=== PATIENT | male | born 1950 | race Caucasian/White ===

== ENCOUNTER 2019-10-02 17:20 | IRF | payer MEDICARE, BC, SELFPAY ==
[2019-10-02 17:20] VITALS: BP 130/62; PULSE 76; RESP 17; TEMP 36.6; O2SAT 97; BMI 33.5
--- NOTE | 2019-10-02 18:19 | ADMGEN ---
This patient, Colin Rowland, was admitted to [facility] Room 221-01. Patient/family oriented to hospital policies and general routines including ID bracelet, bed and alarms, visiting hours, pain management, procedures, bathroom and other care routines, personal items, smoking policy, room service/diet, and visiting hours. Valuables list has been completed. Information on how to activate the Rapid Response Team has been discussed. Patient/Family are encouraged to report perceived risks to care and to ask questions if they do not understand what they are told or what they should do.
[2019-10-02 21:56] VITALS: BP 117/54; PULSE 77; RESP 18; TEMP 36.3; O2SAT 92
[2019-10-03 04:50] LABS: Basophils Absolute Auto 0.1 K/mm3 (0.0-0.1); Eosinophils Absolute Auto 0.9 K/mm3 (0-0.3); Eosinophils Percent Auto 10.3 % (0-4.4); Hematocrit 37.1 % (42.0-52.0); Hemoglobin 11.9 g/dL (14.0-18.0); Immature Granulocyte Absolute 0.07 K/mm3 (0.00-0.031); Immature Granulocyte Percent A 0.8 % (0-0.5); Lymphocytes Absolute Auto 2.41 K/mm3 (0.9-3.2); Mean Corpuscular HGB Conc 32.1 g/dl (32-36); Mean Corpuscular Hemoglobin 31.2 pg (26-34); Mean Corpuscular Volume 97.4 fl (80-100); Mean Platelet Volume 11.8 fl (7.4-10.4); Monocytes Percent Auto 11.7 % (2.6-8.5); Neutrophils Absolute Auto 4.4 K/mm3 (1.3-6.7); Neutrophils Percent Auto 49.2 % (45.5-73.1); Platelet Count Result 250 k/mm3 (150-375); Red Blood Count 3.81 M/mm3 (4.6-6.20); Red Cell Distribution Width 13.7 % (11.5-14.5); White Blood Count 8.9 K/mm3 (4.5-10.0)
[2019-10-03 05:06] LABS: Blood Urea Nitrogen 21 mg/dL (9-20); Calcium 9.5 mg/dL (8.4-10.2); Carbon Dioxide 29 mmol/L (22-30); Chloride 101 mmol/L (98-107); Estimated CRCL calculation 90 ml/min; Estimated Glomerular Filt Rate > 60; Glucose 153 mg/dL (75-110); Potassium 4.1 mmol/L (3.4-5.0); Sodium 138 mmol/L (137-145)
[2019-10-03 06:00] VITALS: BP 156/56; PULSE 70; RESP 18; TEMP 36.6; O2SAT 100
[2019-10-03 08:34] LABS: Hemoglobin A1C 6.1 % (<5.7)
[2019-10-03 10:04] VITALS: PULSE 70
[2019-10-03] MEDS: atenoloL 50 MG TABLET PO (10:04)
[2019-10-03] MEDS: ASPIRIN 81 MG ENTERIC TABLET PO (10:04)
[2019-10-03] MEDS: FENOFIBRATE NANOCRYSTALLIZED 145 MG TABLET PO (10:05)
[2019-10-03] MEDS: metFORMIN HCL 500 MG TABLET 1000 MG PO ×2 (10:05→17:38)
[2019-10-03] MEDS: TELMISARTAN 40 MG TABLET 80 MG PO (10:06)
[2019-10-03] MEDS: TAMSULOSIN HCL 0.4 MG CAPSULE PO (10:06)
[2019-10-03] MEDS: OMEGA 3 POLYUNSAT FATTY ACIDS 1 GM CAP 2 GM PO ×2 (10:06→17:39)
[2019-10-03] MEDS: INSULIN ASPART (*BKC) 100 UNITS/ML SUB-Q ×3 (10:11→17:45)
[2019-10-03] MEDS: INSULIN DETEMIR 100 UNITS/ML 70 UNITS SUB-Q (10:20)
[2019-10-03] MEDS: PREGABALIN 75 MG CAPSULE 150 MG PO ×2 (10:22→17:44)
--- NOTE | 2019-10-03 11:00 | WPDREHABHP ---
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 The patient is a 68-year-old right-handed gentleman with a prior medical history of diabetes peripheral vascular disease and peripheral neuropathy who developed an ischemic ulceration and infection to his left foot. He had a left popliteal distal bypass graft which occluded several years ago. He saw his field service poultry technician, Dr. Herrera on September 15, 2019 were his right foot was debrided. The wrong antibiotics were ordered so he was not on any antibiotic therapy. His left lower extremity started swelling and was extremely painful so he presented to Dr. Melo office. he was directly admitted to [facility] the same day. He underwent a diagnostic aortofemoral anti angiogram to see if any vascular reconstruction was possible. The vascular surgeon determine the patient had non reconstruction will vascular disease bilaterally particularly worse on the left side. The limb was considered on salvageable and the patient underwent till left [id number] amputation on September 27, 2019 postoperatively the patient experienced acute pain, acute blood-loss anemia, and hypotension. He has acute pain is now controlled with oral pain medications. Acute blood-loss anemia stable with the current hemoglobin of 11.9. Hypertension is being managed with multiple medication and is improving. Physical examination reveals an inability to perform ADLs, functional transfers and ambulation independently predated medical management by a physician is required for hypertension, diabetes mellitus, potential for delayed wound healing in the setting of severe peripheral vascular disease, potential for wound dehiscence, and monitor for infection in a patient with a new [id number] amputation and a history of infectious process of the same extremity. Patient completed antibiotic therapy and September 28, 2019. According to our screen patient is supposed to be on Lovenox for DVT prophylaxis but I see that he is not. Therapy was initiated at the acute care facility and the patient transferred to us from [facility] on October 02, 2019 FALLS OR SURGERIES: The patient has had major surgeries in the 100 days prior to admission. They had no falls in the past year. They had no falls with injury in the past year. PAST MEDICAL HISTORY: allergic rhinitis / have fever, right-sided cataract, vertigo from letter cough, left foot cellulitis, eczema on tapering steroids, right toe nonhealing wound, hyperlipidemia, hypertension, MRI, peripheral vascular disease, sleep apnea, gastroesophageal reflux disease, peripheral neuropathy along with diabetes mellitus, obesity PAST SURGICAL HISTORY: peripheral by phos in ( left popliteal pedis artery bypass graft reverse saphenous veins -April 2012), PICC line right arm removed June 27, 2012, I and D left popliteal abscess ( August 04, 2012), right 4th and 5th toe amputation ) November 2015), cholecystectomy in July of 2013, wound VAC left foot between May 18, [id number] SOCIAL HISTORY: patient lives with his in a 1 level home with the level injury. He was completely independent prior with no assistive device. No alcohol use since 04/08, no illicit use of drugs, cigar smoking FAMILY HISTORY: we will find out from his PRIOR LEVEL OF FUNCTION: Eating was INDEPENDENT Oral Care was INDEPENDENT Toileting Hygiene was INDEPENDENT Shower/Bathing was INDEPENDENT Upper Body Dressing was INDEPENDENT Lower Body Dressing was INDEPENDENT Donning/[place] Footwear was INDEPENDENT Rolling Lef
[2019-10-03 12:43] LABS: Glucose Point of Care 131 (65-105)
[2019-10-03 14:00] VITALS: BP 125/58; PULSE 75; RESP 18; TEMP 36.2; O2SAT 100
[2019-10-03 14:15] VITALS: BMI 33.5
--- NOTE | 2019-10-03 15:16 | PCCCNOTE ---
On 10/03/19, the student, [Vincent Murry ], provided care and completed [facility] documentation on this patient. I have reviewed the student's documentation and agree with the findings.
[2019-10-03] MEDS: polyethylene glycoL 3350 17 GM POWD.PACK PO (17:44)
[2019-10-03 17:50] LABS: Glucose Point of Care 90 (65-105)
[2019-10-03 21:37] LABS: Glucose Point of Care 127 (65-105)
[2019-10-03 21:47] VITALS: BP 95/56; PULSE 78; RESP 20; TEMP 36.4; O2SAT 98
[2019-10-04 06:00] VITALS: BP 102/56; PULSE 63; RESP 18; TEMP 36.6; O2SAT 98
[2019-10-04 07:27] LABS: Glucose Point of Care 118 (65-105)
[2019-10-04] MEDS: INSULIN ASPART (*BKC) 100 UNITS/ML SUB-Q ×3 (08:27→17:32)
[2019-10-04] MEDS: INSULIN DETEMIR 100 UNITS/ML 70 UNITS SUB-Q (08:28)
[2019-10-04 08:30] VITALS: PULSE 63
[2019-10-04] MEDS: ASPIRIN 81 MG ENTERIC TABLET PO (08:30)
[2019-10-04] MEDS: atenoloL 50 MG TABLET PO (08:30)
[2019-10-04] MEDS: ENOXAPARIN 40 MG/0.4 ML SYRINGE SUB-Q (08:31)
[2019-10-04] MEDS: TAMSULOSIN HCL 0.4 MG CAPSULE PO (08:31)
[2019-10-04] MEDS: metFORMIN HCL 500 MG TABLET 1000 MG PO ×2 (08:31→17:33)
[2019-10-04] MEDS: FENOFIBRATE NANOCRYSTALLIZED 145 MG TABLET PO (08:31)
[2019-10-04] MEDS: OMEGA 3 POLYUNSAT FATTY ACIDS 1 GM CAP 2 GM PO ×2 (08:31→17:33)
[2019-10-04] MEDS: TELMISARTAN 40 MG TABLET 80 MG PO (08:32)
[2019-10-04] MEDS: PREGABALIN 75 MG CAPSULE 150 MG PO ×2 (08:34→17:35)
[2019-10-04 12:07] LABS: Glucose Point of Care 103 (65-105)
--- NOTE | 2019-10-04 13:30 | WPDNEURORHBP ---
Subjective Date/time seen: 10/04/19 13:30 Interval history: this 68-year-old patient is here after having had a left BKA and doing fairly well He denies any fever chills sore throat headache nausea vomiting shortness of breast chest pain home or any further weakness Review of Systems Review of Systems: All systems reviewed & are unremarkable except as noted in HPI and below Functional Status Ambulation Ability Ability to Ambulate 10 Feet: Minimum Assistance X 1 Ability to Ambulate 50 Feet With 2 Turns: Minimum Assistance X 1 Ambulation Assistive Devices: Walker, Standard Exam Const: General: comfortable and no acute distress HENMT: General nose exam: Normal nares present Mouth: Yes moist mucous membranes Eyes: General: appearance normal, both eyes and all related structures Neck: Neck: supple and no JVD Resp: Effort & Inspection: normal respiratory effort Auscultation: clear to auscultation bilaterally Cardio: Rate: regular rate Rhythm: regular rhythm GI: GI Palp: Yes Soft to palpation Auscultation: normal bowel sounds Skin: General skin exam: normal color and no rashes or lesions noted Neuro: Other: patient is awake and alert will oriented in time place person and speech language functions cranial examination is unremarkable. He does have evidence of peripheral neuropathy and peripheral vascular disease which has already been well documented in the records the left BKA he seems to be doing fairly well Extrem: Other: left BKA Psych: Mental Status: mental status grossly normal Objective Data Vital Signs Vital Signs: Vital Signs - 24 hr 10/03/19 14:00 10/03/19 21:47 10/04/19 06:00 Temperature 36.2 C L 36.4 C 36.6 C Pulse Rate 75 78 63 Respiratory Rate 18 20 18 Blood Pressure 125/58 L 95/56 L 102/56 L Pulse Oximetry 100 98 98 10/04/19 08:30 Temperature Pulse Rate 63 Respiratory Rate Blood Pressure Pulse Oximetry Intake/Output Intake/Output: Intake & Output 10/01/19 10/02/19 10/03/19 10/04/19 23:59 23:59 23:59 23:59 Intake Total 720 240 Balance 720 240 Meds/Results Medications: Active Medications Generic Name Dose Route Start Last Admin Trade Name Freq PRN Reason Stop Dose Admin Hydrocodone Bitart/Acetaminophen 2 tab 10/03/19 17:55 10/04/19 08:29 [place] 5-325 Mg PO 2 tab Q4H PRN Administration Pain (Scale Score 7-10) Aspirin 81 mg 10/03/19 09:00 10/04/19 08:30 Aspirin Ec PO 81 mg DAILY MARLI Administration Atenolol 50 mg 10/03/19 09:00 10/04/19 08:30 Tenormin PO 50 mg DAILY MARLI Administration Clobetasol Propionate 1 applic 10/02/19 21:00 10/04/19 08:31 Temovate 0.05% Cream TOPICAL 1 applic Q12HR MARLI Administration Dextrose 12.5 gm 10/02/19 19:10 Dextrose 50% Syringe IV PUSH PRN PRN Hypoglycemia Protocol Diphenhydramine HCl 50 mg 10/02/19 21:00 10/03/19 20:55 Benadryl Cap PO 50 mg HS MARLI Administration Enoxaparin Sodium 40 mg 10/04/19 09:00 10/04/19 08:31 Lovenox SUB-Q 40 mg DAILY MARLI Administration Fenofibrate 145 mg 10/03/19 09:00 10/04/19 08:31 Tricor PO 145 mg QAM MARLI Administration Fish Oil 2 gm 10/03/19 09:00 10/04/19 08:31 Lovaza PO 2 gm BID MARLI Administration Glucagon 1 mg 10/02/19 19:10 Glucagon For Inj IM PRN PRN Hypoglycemia Protocol Glucose 15 gm 10/02/19 19:10 Glutose 15 PO PRN PRN Hypoglycemia Protocol Dextrose 1,000 mls @ 100 mls/hr 10/02/19 19:10 Dextrose 5% 1,000 Ml IVPB PRN PRN Hypoglycemia Protocol Insulin Aspart 4 - 6 units 10/02/19 19:10 10/04/19 08:27 Novolog SUB-Q 6 units TIDWM MARLI Administration Insulin Aspart 4 - 8 units 10/03/19 08:00 10/04/19 08:27 Novolog SUB-Q Not Given TIDWM [facility] Protocol Insulin Detemir 70 units 10/03/19 09:00 10/04/19 08:28 Levemir SUB-Q 70 units DAILY MARLI Administration Metformin HCl 1,
[2019-10-04 14:00] VITALS: BP 108/62; PULSE 76; RESP 20; TEMP 36.2; O2SAT 96
--- NOTE | 2019-10-04 16:27 | RPD ---
INDIVIDUALIZED PLAN OF CARE FOR Colin Rowland Brief Synthesis of Pre-Admission Screen, Post-Admission Evaluation and Therapy Evaluations: The patient presents to rehab with peripheral artery disease with left foot ischemic ulcer. Comorbidities include status post left below the knee amputation, diabetes mellitus, hypertension, hyperlipidemia, infection, acute pain, peripheral vascular disease, benign prostatic hypertrophy, peripheral arterial disease. The patient requires physician services for medical oversight, management of post-op complications in the setting of present comorbidities, management of diabetes mellitus diagnosis, hypertension, and pain management. The patient requires nursing services for anticoagulation therapy, diabetes training, DVT prophylactics, infection protection, medication management and education, pressure relief, and wound care. Deficits include:ADLs, Balance, Endurance, Mobility, Pain Management, ROM, Safety, Strength,Transfers Ordnance Mechanic/Case Management for: Discharge Planning and Patient/Family Counseling Physical Therapy: 5 days per week for 90 minutes. Treatments may include: Therapeutic Exercise, Gait Training, Neuromuscular Re-education, Transfer Training, Community Reintegration, Bed Mobility, Patient/Family Education, Wheelchair Mobility Group Therapy/Concurrent Therapy Rationales: -Improve attention span during functional activities in a distracted environment. -Enhance problem solving and/or adequate judgment skills during functional activities in a distracted environment. -Promote increased safety awareness in a distracted environment to reduce fall risk with functional tasks, transfers, and ambulation to allow a more safe, self-sufficient return to the home environment. -Improve dynamic balance skills to promote safety and independence with functional activities in a distracted environment for maximum gain. Occupational Therapy: 5 days per week for 90 minutes. Treatments may include: Therapeutic Exercise, Therapeutic Activity, Cognitive Training, Self-Care Transfer Training, Community Reintegration, Home Management, Patient/Family Education, Wheelchair Mobility Training, Energy Conservation Training Group Therapy/Concurrent Therapy Rationales: -Allow therapist to observe and teach generalization and carry-over of skills learned in individual therapy. -Enhance problem solving and sequencing skills during therapeutic activities in a distracted environment. -Promote increased safety awareness in a realistic setting to reduce fall risk with functional tasks due to visual and verbal distractions. -Increase functional level with ADLs, ADL transfers and use of adaptive equipment through therapeutic activities with others while promoting safety to allow a more safe, self-sufficient return home. Medical Prognosis: Good Anticipated Length of Stay: 12 days Rehab Goals: Eating Goal: 06-Independent Oral Hygiene Goal: 06-Independent Toileting Hygiene Goal: 06-Independent Shower/Bathe Self Goal: 06-Independent Upper Body Dressing Goal: 06-Independent Lower Body Dressing Goal: 06-Independent Putting On/Taking Off Footwear Goal: 06-Independent Rolling Left and Right Goal: 06-Independent Sit to Lying Goal: 06-Independent Lying to Sitting on Side of Bed Goal: 06-Independent Sit to Stand Goal: 06-Independent Chair/But-qn-Nhygy Transfer Goal: 06-Independent Toilet Transfer Goal: 06-Independent Car Transfer Goal: 05-Setup or Clean Up Assistance Walk 10' Goal: 05-Setup or Clean Up Assistance Walk 50' with Two Turns Goal: 05-Setup or Clean Up Assistance Walk 150' Goal: 88-Not Attempted Due to Medical Condition/Safety Concerns Walk 10' on Uneven Surface Goal: 05-Setup or Clean Up Assistance 1 Step (Curb) Goal: 03-Partial/Moderate Assistance 4 Steps Goal: 88-Not Attempted Due to Medical Condition/Safety Concerns 12 Steps Goal Score: 88-Not Attempted Due to Medical Condition/Safety Concerns Picking Up Object Goal: 06-Indepen
[2019-10-04 16:59] LABS: Glucose Point of Care 99 (65-105)
[2019-10-04] MEDS: DOCUSATE SODIUM 100 MG CAPSULE PO (20:23)
[2019-10-04 21:18] LABS: Glucose Point of Care 167 (65-105)
[2019-10-05 06:00] VITALS: BP 103/44; PULSE 74; RESP 16; TEMP 36.5; O2SAT 98
[2019-10-05 06:54] LABS: Glucose Point of Care 130 (65-105)
[2019-10-05] MEDS: ENOXAPARIN 40 MG/0.4 ML SYRINGE SUB-Q (09:30)
[2019-10-05] MEDS: OMEGA 3 POLYUNSAT FATTY ACIDS 1 GM CAP 2 GM PO ×2 (09:30→17:36)
[2019-10-05] MEDS: polyethylene glycoL 3350 17 GM POWD.PACK PO (09:31)
[2019-10-05] MEDS: atenoloL 50 MG TABLET PO (09:31)
[2019-10-05] MEDS: FENOFIBRATE NANOCRYSTALLIZED 145 MG TABLET PO (09:31)
[2019-10-05] MEDS: ASPIRIN 81 MG ENTERIC TABLET PO (09:32)
[2019-10-05] MEDS: TAMSULOSIN HCL 0.4 MG CAPSULE PO (09:32)
[2019-10-05] MEDS: metFORMIN HCL 500 MG TABLET 1000 MG PO ×2 (09:32→17:36)
[2019-10-05] MEDS: DOCUSATE SODIUM 100 MG CAPSULE PO ×2 (09:32→20:57)
[2019-10-05] MEDS: TELMISARTAN 40 MG TABLET 80 MG PO (09:33)
[2019-10-05] MEDS: INSULIN DETEMIR 100 UNITS/ML 70 UNITS SUB-Q (09:35)
[2019-10-05] MEDS: PREGABALIN 75 MG CAPSULE 150 MG PO ×2 (09:36→17:38)
[2019-10-05 11:49] LABS: Glucose Point of Care 179 (65-105)
[2019-10-05] MEDS: INSULIN ASPART (*BKC) 100 UNITS/ML SUB-Q ×2 (11:58→17:34)
[2019-10-05 14:00] VITALS: BP 122/55; PULSE 78; RESP 18; TEMP 36.6; O2SAT 100
--- NOTE | 2019-10-05 14:37 | PCDIET ---
Nutrition Follow-Up Complete: Nutrition Diagnosis: Altered nutrition related labs related to diabetes mellitus as evidenced by HgbA1C of 6.1%. Nutrition Goals: Patient to consume 75% or more of meals and Baljinder supplement Goals met. Patient consuming 100% of meals on diabetic diet which is appropriate. Last recorded weight is 103 kg. Recommend obtaining new weight. Bowel Motility: No issues noted. Labs Reviewed: Glu (179) Meds Noted: Colace, Levemir, Lovaza, Glucophage, Novolog, Miralax Additional Notes: Left leg incision with dressing. No pressure sores documented. Will continue to monitor with same goals. Nutrition Monitoring and Evaluation: Follow up in 5 days.
--- NOTE | 2019-10-05 15:54 | PCCCNOTE ---
On 10/05/19, the student, [Vincent Murry ], provided care and completed [facility] documentation on this patient. I have reviewed the student's documentation and agree with the findings.
[2019-10-05 17:00] LABS: Glucose Point of Care 140 (65-105)
[2019-10-05 21:22] LABS: Glucose Point of Care 184 (65-105)
[2019-10-05 21:58] VITALS: BP 114/58; PULSE 85; RESP 20; TEMP 36.4; O2SAT 94
[2019-10-06 06:00] VITALS: BP 112/46; PULSE 71; RESP 18; TEMP 36.2; O2SAT 93
[2019-10-06 07:06] LABS: Glucose Point of Care 130 (65-105)
[2019-10-06] MEDS: INSULIN DETEMIR 100 UNITS/ML 70 UNITS SUB-Q (09:41)
[2019-10-06] MEDS: INSULIN ASPART (*BKC) 100 UNITS/ML SUB-Q ×3 (09:42→18:11)
[2019-10-06] MEDS: ASPIRIN 81 MG ENTERIC TABLET PO (09:42)
[2019-10-06 09:43] VITALS: PULSE 71
[2019-10-06] MEDS: metFORMIN HCL 500 MG TABLET 1000 MG PO ×2 (09:43→18:12)
[2019-10-06] MEDS: DOCUSATE SODIUM 100 MG CAPSULE PO ×2 (09:43→20:04)
[2019-10-06] MEDS: atenoloL 50 MG TABLET PO (09:43)
[2019-10-06] MEDS: FENOFIBRATE NANOCRYSTALLIZED 145 MG TABLET PO (09:43)
[2019-10-06] MEDS: ENOXAPARIN 40 MG/0.4 ML SYRINGE SUB-Q (09:43)
[2019-10-06] MEDS: TELMISARTAN 40 MG TABLET 80 MG PO (09:44)
[2019-10-06] MEDS: TAMSULOSIN HCL 0.4 MG CAPSULE PO (09:44)
[2019-10-06] MEDS: polyethylene glycoL 3350 17 GM POWD.PACK PO (09:44)
[2019-10-06] MEDS: OMEGA 3 POLYUNSAT FATTY ACIDS 1 GM CAP 2 GM PO ×2 (09:44→18:15)
[2019-10-06] MEDS: PREGABALIN 75 MG CAPSULE 150 MG PO ×2 (09:44→18:16)
[2019-10-06 11:58] LABS: Glucose Point of Care 144 (65-105)
[2019-10-06 14:00] VITALS: BP 118/54; PULSE 76; RESP 20; TEMP 36.8; O2SAT 98
[2019-10-06 17:02] LABS: Glucose Point of Care 119 (65-105)
[2019-10-06 21:20] LABS: Glucose Point of Care 217 (65-105)
[2019-10-06 22:00] VITALS: BP 98/51; PULSE 80; RESP 20; TEMP 36.8; O2SAT 92
[2019-10-07 06:00] VITALS: BP 126/54; PULSE 74; RESP 18; TEMP 36.2; O2SAT 94
[2019-10-07 06:56] LABS: Glucose Point of Care 150 (65-105)
[2019-10-07 09:25] VITALS: PULSE 74
[2019-10-07] MEDS: atenoloL 50 MG TABLET PO (09:25)
[2019-10-07] MEDS: ASPIRIN 81 MG ENTERIC TABLET PO (09:25)
[2019-10-07] MEDS: metFORMIN HCL 500 MG TABLET 1000 MG PO ×2 (09:26→18:35)
[2019-10-07] MEDS: ENOXAPARIN 40 MG/0.4 ML SYRINGE SUB-Q (09:26)
[2019-10-07] MEDS: FENOFIBRATE NANOCRYSTALLIZED 145 MG TABLET PO (09:26)
[2019-10-07] MEDS: polyethylene glycoL 3350 17 GM POWD.PACK PO (09:27)
[2019-10-07] MEDS: TAMSULOSIN HCL 0.4 MG CAPSULE PO (09:27)
[2019-10-07] MEDS: OMEGA 3 POLYUNSAT FATTY ACIDS 1 GM CAP 2 GM PO ×2 (09:27→18:36)
[2019-10-07] MEDS: TELMISARTAN 40 MG TABLET 80 MG PO (09:27)
[2019-10-07] MEDS: DOCUSATE SODIUM 100 MG CAPSULE PO ×2 (09:28→20:07)
[2019-10-07] MEDS: INSULIN DETEMIR 100 UNITS/ML 70 UNITS SUB-Q (09:30)
[2019-10-07] MEDS: PREGABALIN 75 MG CAPSULE 150 MG PO ×2 (09:30→18:41)
[2019-10-07] MEDS: INSULIN ASPART (*BKC) 100 UNITS/ML SUB-Q ×2 (09:33→12:01)
--- NOTE | 2019-10-07 11:13 | WPDNEURORHBP ---
Subjective Date/time seen: 10/07/19 11:13 Review of Systems Review of Systems: All systems reviewed & are unremarkable except as noted in HPI and below Functional Status Ambulation Ability Ability to Ambulate 10 Feet: Contact Guard Ability to Ambulate 50 Feet With 2 Turns: Minimum Assistance X 1 Ambulation Assistive Devices: Walker, Standard Transfers Ability Ability to Transfer In/Out of Chair: Contact Guard Exam Const: General: cooperative, healthy appearing, comfortable and no acute distress Nutritional Appearance: well nourished Limitations: no limitations (amputee on left) HENMT: Head: normocephalic Neck: Neck: full ROM and no lymphadenopathy Thyroid: thyroid normal Resp: Effort & Inspection: normal respiratory effort and able to speak in complete sentences Auscultation: clear to auscultation bilaterally Cardio: Rhythm: regular rhythm GI: Auscultation: normal bowel sounds Skin: General skin exam: no rashes or lesions noted Neuro: General: patient oriented x3, moves all extremities, no focal motor deficits and CN's II-XI intact bilaterally Motor exam (neuro): 5/5 motor strength present throughout Sensory Exam: Sensory deficit (Neuro) (distally) Deep tendon reflexes (DTR's): Right triceps reflex intensity grade: 1+, Left triceps reflex intensity grade: 1+, Rt Biceps (C5, C6): 1+, Left biceps reflex intensity grade: 1+, Right brachioradialis reflex intensity grade: 1+, Left brachioradialis reflex intensity grade: 1+, Right patellar reflex intensity grade: 0 and Right ankle reflex intensity grade: 0 Plantar Reflex Responses: downgoing: right Coordination: [id number] test normal Extrem: General: amputation noted Below the knee: left Psych: Appearance: grossly normal Objective Data Vital Signs Vital Signs: Vital Signs - 24 hr 10/06/19 14:00 10/06/19 22:00 10/07/19 06:00 Temperature 36.8 C 36.8 C 36.2 C L Pulse Rate 76 80 74 Respiratory Rate 20 20 18 Blood Pressure 118/54 L 98/51 L 126/54 L Pulse Oximetry 98 92 94 10/07/19 09:25 Temperature Pulse Rate 74 Respiratory Rate Blood Pressure Pulse Oximetry Intake/Output Intake/Output: Intake & Output 10/04/19 10/05/19 10/06/19 10/07/19 23:59 23:59 23:59 23:59 Intake Total 720 840 720 240 Balance 720 840 720 240 Meds/Results Medications: Active Medications Generic Name Dose Route Start Last Admin Trade Name Freq PRN Reason Stop Dose Admin Hydrocodone Bitart/Acetaminophen 2 tab 10/03/19 17:55 10/06/19 18:16 [place] 5-325 Mg PO 2 tab Q4H PRN Administration Pain (Scale Score 7-10) Aspirin 81 mg 10/03/19 09:00 10/07/19 09:25 Aspirin Ec PO 81 mg DAILY MARLI Administration Atenolol 50 mg 10/03/19 09:00 10/07/19 09:25 Tenormin PO 50 mg DAILY MARLI Administration Clobetasol Propionate 1 applic 10/02/19 21:00 10/07/19 09:37 Temovate 0.05% Cream TOPICAL 1 applic Q12HR MARLI Administration Dextrose 12.5 gm 10/02/19 19:10 Dextrose 50% Syringe IV PUSH PRN PRN Hypoglycemia Protocol Diphenhydramine HCl 50 mg 10/02/19 21:00 10/06/19 20:04 Benadryl Cap PO 50 mg HS MARLI Administration Docusate Sodium 100 mg 10/04/19 21:00 10/07/19 09:28 Colace Capsule PO 100 mg Q12HR MARLI Administration Enoxaparin Sodium 40 mg 10/04/19 09:00 10/07/19 09:26 Lovenox SUB-Q 40 mg DAILY MARLI Administration Fenofibrate 145 mg 10/03/19 09:00 10/07/19 09:26 Tricor PO 145 mg QAM MARLI Administration Fish Oil 2 gm 10/03/19 09:00 10/07/19 09:27 Lovaza PO 2 gm BID MARLI Administration Glucagon 1 mg 10/02/19 19:10 Glucagon For Inj IM PRN PRN Hypoglycemia Protocol Glucose 15 gm 10/02/19 19:10 Glutose 15 PO PRN PRN Hypoglycemia Protocol Dextrose 1,000 mls @ 100 mls/hr 10/02/19 19:10 Dextrose 5% 1,000 Ml IVPB PRN PRN Hypoglycemia Protocol Insulin Aspart 4 - 6 units 10/02/19 19:10 02
[2019-10-07 12:15] LABS: Glucose Point of Care 116 (65-105)
[2019-10-07 14:00] VITALS: BP 134/54; PULSE 80; RESP 18; TEMP 36.7; O2SAT 100
[2019-10-07 17:26] LABS: Glucose Point of Care 84 (65-105)
[2019-10-07 21:40] LABS: Glucose Point of Care 150 (65-105)
[2019-10-07 22:00] VITALS: BP 95/57; PULSE 79; RESP 18; TEMP 36.4; O2SAT 97
[2019-10-08 06:00] VITALS: BP 112/48; PULSE 71; RESP 18; TEMP 36.2; O2SAT 98
[2019-10-08 06:34] LABS: Glucose Point of Care 124 (65-105)
[2019-10-08] MEDS: INSULIN ASPART (*BKC) 100 UNITS/ML SUB-Q (09:09)
[2019-10-08] MEDS: ASPIRIN 81 MG ENTERIC TABLET PO (09:10)
[2019-10-08 09:11] VITALS: PULSE 71
[2019-10-08] MEDS: atenoloL 50 MG TABLET PO (09:11)
[2019-10-08] MEDS: ENOXAPARIN 40 MG/0.4 ML SYRINGE SUB-Q (09:14)
[2019-10-08] MEDS: DOCUSATE SODIUM 100 MG CAPSULE PO ×2 (09:14→20:07)
[2019-10-08] MEDS: metFORMIN HCL 500 MG TABLET 1000 MG PO ×2 (09:15→18:23)
[2019-10-08] MEDS: OMEGA 3 POLYUNSAT FATTY ACIDS 1 GM CAP 2 GM PO ×2 (09:15→18:24)
[2019-10-08] MEDS: FENOFIBRATE NANOCRYSTALLIZED 145 MG TABLET PO (09:15)
[2019-10-08] MEDS: TELMISARTAN 40 MG TABLET 80 MG PO (09:16)
[2019-10-08] MEDS: PREGABALIN 75 MG CAPSULE 150 MG PO ×2 (09:16→18:25)
[2019-10-08] MEDS: TAMSULOSIN HCL 0.4 MG CAPSULE PO (09:16)
[2019-10-08] MEDS: polyethylene glycoL 3350 17 GM POWD.PACK PO (09:16)
[2019-10-08] MEDS: INSULIN DETEMIR 100 UNITS/ML 70 UNITS SUB-Q (09:19)
[2019-10-08 12:50] LABS: Glucose Point of Care 89 (65-105)
[2019-10-08 14:00] VITALS: BP 126/64; PULSE 78; RESP 18; TEMP 36.6; O2SAT 96
[2019-10-08 17:58] LABS: Glucose Point of Care 126 (65-105)
--- NOTE | 2019-10-08 20:02 | PC.NURSE ---
pts left stump dressing changed --cleansed with NS, super sponges to protect and hugh wrapped.
[2019-10-08 21:05] LABS: Glucose Point of Care 154 (65-105)
[2019-10-08 21:23] VITALS: BP 119/41; PULSE 81; RESP 16; TEMP 36.6; O2SAT 99
[2019-10-09 06:00] VITALS: BP 118/45; PULSE 69; RESP 20; TEMP 36.4; O2SAT 97
[2019-10-09 07:24] LABS: Glucose Point of Care 132 (65-105)
[2019-10-09 10:57] VITALS: PULSE 84
[2019-10-09] MEDS: atenoloL 50 MG TABLET PO (10:57)
[2019-10-09] MEDS: DOCUSATE SODIUM 100 MG CAPSULE PO ×2 (10:57→21:19)
[2019-10-09] MEDS: ASPIRIN 81 MG ENTERIC TABLET PO (10:57)
[2019-10-09] MEDS: FENOFIBRATE NANOCRYSTALLIZED 145 MG TABLET PO (10:58)
[2019-10-09] MEDS: OMEGA 3 POLYUNSAT FATTY ACIDS 1 GM CAP 2 GM PO ×2 (10:58→18:16)
[2019-10-09] MEDS: metFORMIN HCL 500 MG TABLET 1000 MG PO ×2 (10:58→18:16)
[2019-10-09] MEDS: ENOXAPARIN 40 MG/0.4 ML SYRINGE SUB-Q (10:58)
[2019-10-09] MEDS: TAMSULOSIN HCL 0.4 MG CAPSULE PO (10:59)
[2019-10-09] MEDS: polyethylene glycoL 3350 17 GM POWD.PACK PO (10:59)
[2019-10-09] MEDS: TELMISARTAN 40 MG TABLET 80 MG PO (10:59)
[2019-10-09] MEDS: INSULIN DETEMIR 100 UNITS/ML 70 UNITS SUB-Q (11:00)
[2019-10-09] MEDS: PREGABALIN 75 MG CAPSULE 150 MG PO ×2 (11:03→18:19)
[2019-10-09 12:37] LABS: Glucose Point of Care 137 (65-105)
[2019-10-09] MEDS: INSULIN ASPART (*BKC) 100 UNITS/ML SUB-Q ×2 (12:54→18:20)
[2019-10-09 14:00] VITALS: BP 117/55; PULSE 85; RESP 20; TEMP 36.4; O2SAT 95
[2019-10-09 18:55] LABS: Glucose Point of Care 158 (65-105)
--- NOTE | 2019-10-09 20:33 | PC.NURSE ---
stump cleansed with NS and super sponges placed, kerlix wrap and hugh wrap applied.
[2019-10-09 20:43] LABS: Glucose Point of Care 146 (65-105)
[2019-10-09 22:00] VITALS: BP 112/55; PULSE 85; RESP 18; TEMP 36.6; O2SAT 92
[2019-10-10 05:40] LABS: Basophils Absolute Auto 0.1 K/mm3 (0.0-0.1); Basophils Percent Auto 1.4 % (0.2-1.2); Eosinophils Absolute Auto 0.9 K/mm3 (0-0.3); Eosinophils Percent Auto 12.1 % (0-4.4); Hemoglobin 11.9 g/dL (14.0-18.0); Immature Granulocyte Absolute 0.07 K/mm3 (0.00-0.031); Lymphocytes Absolute Auto 2.39 K/mm3 (0.9-3.2); Lymphocytes Percent Auto 33.2 % (18.3-44.2); Mean Corpuscular HGB Conc 31.3 g/dl (32-36); Mean Corpuscular Hemoglobin 31.1 pg (26-34); Mean Corpuscular Volume 99.2 fl (80-100); Mean Platelet Volume 12.5 fl (7.4-10.4); Monocytes Absolute Auto 0.9 K/mm3 (0.1-0.6); Monocytes Percent Auto 11.8 % (2.6-8.5); Neutrophils Absolute Auto 2.9 K/mm3 (1.3-6.7); Neutrophils Percent Auto 40.5 % (45.5-73.1); Platelet Count Result 239 k/mm3 (150-375); Red Blood Count 3.83 M/mm3 (4.6-6.20); Red Cell Distribution Width 13.6 % (11.5-14.5); White Blood Count 7.2 K/mm3 (4.5-10.0)
[2019-10-10 05:58] LABS: Blood Urea Nitrogen 35 mg/dL (9-20); Calcium 10.2 mg/dL (8.4-10.2); Carbon Dioxide 31 mmol/L (22-30); Chloride 101 mmol/L (98-107); Estimated CRCL calculation 90 ml/min; Estimated Glomerular Filt Rate > 60; Glucose 119 mg/dL (75-110); Potassium 4.6 mmol/L (3.4-5.0); Sodium 139 mmol/L (137-145)
[2019-10-10 06:00] VITALS: BP 121/47; PULSE 69; RESP 18; TEMP 36.2; O2SAT 98
[2019-10-10 07:03] LABS: Glucose Point of Care 128 (65-105)
[2019-10-10] MEDS: INSULIN ASPART (*BKC) 100 UNITS/ML SUB-Q ×3 (09:06→18:02)
[2019-10-10 09:08] VITALS: PULSE 80
[2019-10-10] MEDS: ENOXAPARIN 40 MG/0.4 ML SYRINGE SUB-Q (09:08)
[2019-10-10] MEDS: atenoloL 50 MG TABLET PO (09:08)
[2019-10-10] MEDS: DOCUSATE SODIUM 100 MG CAPSULE PO ×2 (09:08→22:06)
[2019-10-10] MEDS: FENOFIBRATE NANOCRYSTALLIZED 145 MG TABLET PO (09:08)
[2019-10-10] MEDS: TAMSULOSIN HCL 0.4 MG CAPSULE PO (09:08)
[2019-10-10] MEDS: ASPIRIN 81 MG ENTERIC TABLET PO (09:08)
[2019-10-10] MEDS: metFORMIN HCL 500 MG TABLET 1000 MG PO ×2 (09:08→18:03)
[2019-10-10] MEDS: TELMISARTAN 40 MG TABLET 80 MG PO (09:08)
[2019-10-10] MEDS: polyethylene glycoL 3350 17 GM POWD.PACK PO (09:10)
[2019-10-10] MEDS: OMEGA 3 POLYUNSAT FATTY ACIDS 1 GM CAP 2 GM PO ×2 (09:10→18:03)
[2019-10-10] MEDS: PREGABALIN 75 MG CAPSULE 150 MG PO ×2 (09:13→18:06)
[2019-10-10] MEDS: INSULIN DETEMIR 100 UNITS/ML 70 UNITS SUB-Q (09:14)
[2019-10-10 11:44] LABS: Glucose Point of Care 111 (65-105)
--- NOTE | 2019-10-10 13:28 | WPDNEURORHBP ---
Subjective Date/time seen: 10/10/19 13:28 Interval history: this 68-year-old gentleman is here for the PT OT and medical management in particular of the left BKA he was present for the team conference along with his does not have any new complaints and quite happy with the care he is receiving he is doing remarkably well in the therapy without any headache nausea vomiting chest pain shortness of breath abdominal pain diarrhea fever chills sore throat Review of Systems Review of Systems: All systems reviewed & are unremarkable except as noted in HPI and below Functional Status Ambulation Ability Ability to Ambulate 10 Feet: Contact Guard Ability to Ambulate 50 Feet With 2 Turns: Minimum Assistance X 1 Ambulation Assistive Devices: Walker, Standard Transfers Ability Ability to Transfer In/Out of Chair: Contact Guard Exam Const: General: comfortable and no acute distress HENMT: General nose exam: Normal nares present Mouth: Yes moist mucous membranes Eyes: General: appearance normal, both eyes and all related structures Neck: Neck: no JVD Resp: Effort & Inspection: normal respiratory effort Auscultation: clear to auscultation bilaterally Cardio: Rate: regular rate Rhythm: regular rhythm GI: GI Palp: Yes Soft to palpation Auscultation: normal bowel sounds Skin: General skin exam: normal color and no rashes or lesions noted Neuro: Other: patient is awake and alert will oriented in time place and person with normal speech and language function normal cranial examination improved upper extremity strength and improving lower extremity strength and improving left BKA Extrem: Other: left BKA stump looks clean and healthy Psych: Mental Status: mental status grossly normal Objective Data Vital Signs Vital Signs: Vital Signs - 24 hr 10/09/19 14:00 10/09/19 22:00 10/10/19 06:00 Temperature 36.4 C 36.6 C 36.2 C L Pulse Rate 85 85 69 Respiratory Rate 20 18 18 Blood Pressure 117/55 L 112/55 L 121/47 L Pulse Oximetry 95 92 98 10/10/19 09:08 Temperature Pulse Rate 80 Respiratory Rate Blood Pressure Pulse Oximetry Intake/Output Intake/Output: Intake & Output 10/07/19 10/08/19 10/09/19 10/10/19 23:59 23:59 23:59 23:59 Intake Total 840 1080 940 600 Balance 840 1080 940 600 Meds/Results Medications: Active Medications Generic Name Dose Route Start Last Admin Trade Name Freq PRN Reason Stop Dose Admin Hydrocodone Bitart/Acetaminophen 2 tab 10/03/19 17:55 10/10/19 11:08 [place] 5-325 Mg PO 2 tab Q4H PRN Administration Pain (Scale Score 7-10) Aspirin 81 mg 10/03/19 09:00 10/10/19 09:08 Aspirin Ec PO 81 mg DAILY MARLI Administration Atenolol 50 mg 10/03/19 09:00 10/10/19 09:08 Tenormin PO 50 mg DAILY MARLI Administration Clobetasol Propionate 1 applic 10/02/19 21:00 10/10/19 09:21 Temovate 0.05% Cream TOPICAL 1 applic Q12HR MARLI Administration Dextrose 12.5 gm 10/02/19 19:10 Dextrose 50% Syringe IV PUSH PRN PRN Hypoglycemia Protocol Diphenhydramine HCl 50 mg 10/02/19 21:00 10/09/19 21:18 Benadryl Cap PO 50 mg HS MARLI Administration Docusate Sodium 100 mg 10/04/19 21:00 10/10/19 09:08 Colace Capsule PO 100 mg Q12HR MARLI Administration Enoxaparin Sodium 40 mg 10/04/19 09:00 10/10/19 09:08 Lovenox SUB-Q 40 mg DAILY MARLI Administration Fenofibrate 145 mg 10/03/19 09:00 10/10/19 09:08 Tricor PO 145 mg QAM MARLI Administration Fish Oil 2 gm 10/03/19 09:00 10/10/19 09:10 Lovaza PO 2 gm BID MARLI Administration Glucagon 1 mg 10/02/19 19:10 Glucagon For Inj IM PRN PRN Hypoglycemia Protocol Glucose 15 gm 10/02/19 19:10 Glutose 15 PO PRN PRN Hypoglycemia Protocol Dextrose 1,000 mls @ 100 mls/hr 10/02/19 19:10 Dextrose 5% 1,000 Ml IVPB PRN PRN Hypoglycemia Protocol Insulin Aspart 4 - 6 units 10/02/19 19:10
[2019-10-10 14:00] VITALS: BP 121/52; PULSE 84; RESP 18; TEMP 36.4; O2SAT 95
--- NOTE | 2019-10-10 14:29 | PCCCNOTE ---
On 10/10/19, the student, [Vincent Murry ], provided care and completed [facility] documentation on this patient. I have reviewed the student's documentation and agree with the findings.
[2019-10-10 17:27] LABS: Glucose Point of Care 142 (65-105)
[2019-10-10 22:00] VITALS: BP 114/63; PULSE 80; RESP 18; TEMP 36.2; O2SAT 91
[2019-10-10 22:01] LABS: Glucose Point of Care 145 (65-105)
[2019-10-11 06:00] VITALS: BP 134/66; PULSE 71; RESP 18; TEMP 36.3; O2SAT 99
[2019-10-11 06:58] LABS: Glucose Point of Care 116 (65-105)
--- NOTE | 2019-10-11 08:37 | PCPTNOTE ---
Addendum entered by Meseret Burleson, VENEER STOCK GRADER 10/11/19 09:52: The standard walker will resolve the patient's mobility deficits, including decreased balance, strength, endurance and limited weight bearing of left lower extremity. Original Note: Colin Rowland was evaluated for a standard walker on 10/11/2019 by this physical therapist dental ceramist assistant. The standard will resolve patient's mobility limitations and will be used for ADL's within the home. The patient can safely use the standard walker.?The standard walker will resolve the patient?s mobility deficits, including decreased balance, strength and endurance.
--- NOTE | 2019-10-11 08:44 | PCPTNOTE ---
Meseret Burleson PTA completed an inpatient rehab wheelchair evaluation on Colin Rowland on 10/11/2019. The patient is unable to safely and independently ambulate household distances due to their current impairments. Their diagnosis is left bka and their impairments include decreased strength, decreased endurance, decreased range of motion, decreased balance, and lower extremity weakness. Colin's weight bearing status is weight-bearing as tolerated on the right lower extremity and non-weight bearing on the left lower extremity extremity. The patient demonstrates significant functional mobility limitations that impair their ability to participate in mobility-related activities of daily living (MRADLs), including toileting, feeding, dressing, grooming, and bathing in the customary locations in the home. These limitations cannot be sufficiently resolved by the use of an appropriately fitted cane or walker. It is recommended that the patient utilize a wheelchair for functional mobility within the home in order to facilitate optimal safety, independence and participation in all MRADL's and adequately access their home environment on a regular basis. The patient's home provides adequate access between rooms, maneuvering space, and surfaces to accommodate the recommended wheelchair. The use of a wheelchair for functional mobility is strongly recommended and the patient is receptive to using the wheelchair. The use of this wheelchair will significantly improve the patient's ability to participate in MRADLS and the patient will use it on a regular basis in the home. This will facilitate optimal safety, independence, and participation. The patient has demonstrated sufficient physical and mental capabilities needed to safely propel a manual wheelchair that is provided in the home during a typical day. Recommended Wheelchair Frame: 18x20 Recommended Wheelchair Size: standard Recommended wheelchair: swing away arm rests Recommended Wheelchair Cushion:standard Wheelchair Leg Recommendations: left residual leg rest and right swing away leg rest. - Anti-tippers are recommended due to patient demonstrating increased risk for falls. They would benefit from anti-tippers with added safety and stabilization. -Adjustable arm height is recommended because the patient requires an arm height that is different than that which is available using non-adjustable arms. The patient spends at least 2 hours per day in the wheelchair. Meseret [place] [employer] 10-11-2019 Evaluating Therapist Date I agree with and certify that the above recommendation is medically necessary. Referring Physician Date I agree with and certify that the above recommendation is medically necessary. Referring Physician Date
[2019-10-11] MEDS: INSULIN DETEMIR 100 UNITS/ML 70 UNITS SUB-Q (09:28)
[2019-10-11] MEDS: INSULIN ASPART (*BKC) 100 UNITS/ML SUB-Q ×3 (09:28→18:06)
[2019-10-11] MEDS: DOCUSATE SODIUM 100 MG CAPSULE PO ×2 (09:31→20:25)
[2019-10-11] MEDS: OMEGA 3 POLYUNSAT FATTY ACIDS 1 GM CAP 2 GM PO ×2 (09:31→18:08)
[2019-10-11 09:32] VITALS: PULSE 71
[2019-10-11] MEDS: ENOXAPARIN 40 MG/0.4 ML SYRINGE SUB-Q (09:32)
[2019-10-11] MEDS: atenoloL 50 MG TABLET PO (09:32)
[2019-10-11] MEDS: FENOFIBRATE NANOCRYSTALLIZED 145 MG TABLET PO (09:32)
[2019-10-11] MEDS: ASPIRIN 81 MG ENTERIC TABLET PO (09:32)
[2019-10-11] MEDS: TAMSULOSIN HCL 0.4 MG CAPSULE PO (09:33)
[2019-10-11] MEDS: polyethylene glycoL 3350 17 GM POWD.PACK PO (09:33)
[2019-10-11] MEDS: metFORMIN HCL 500 MG TABLET 1000 MG PO ×2 (09:33→18:08)
[2019-10-11] MEDS: TELMISARTAN 40 MG TABLET 80 MG PO (09:33)
[2019-10-11] MEDS: PREGABALIN 75 MG CAPSULE 150 MG PO ×2 (09:34→18:07)
--- NOTE | 2019-10-11 10:54 | PCDIET ---
Nutrition Follow-Up Complete: Nutrition Diagnosis: Altered nutrition related labs related to diabetes mellitus as evidenced by HgbA1C of 6.1%. Nutrition Goals: Patient to consume 75% or more of meals and Baljinder supplement Goals met. Patient consuming 100% of most meals on diabetic diet. Reports taking Baljinder supplement, as well. Denies needs or concerns at this time. Last recorded weight is 103 kg. Recommend obtaining new weight. Bowel Motility: Last documented bowel movement 10/10/19. Labs Reviewed: Glu (116) Meds Noted: Colace, Levemir, Lovaza, Glucophage, Novolog, Miralax Additional Notes: Dressing to left BKA site. No issues with healing reported. Recommend continuing present diet/supplements. Will continue to monitor with same goals. Nutrition Monitoring and Evaluation: Follow up in 7 days.
[2019-10-11 11:54] LABS: Glucose Point of Care 151 (65-105)
[2019-10-11 14:00] VITALS: BP 139/60; PULSE 86; RESP 18; TEMP 36.4; O2SAT 98
--- NOTE | 2019-10-11 14:40 | WPDNEURORHBP ---
Subjective Date/time seen: 10/11/19 14:40 Interval history: this 68-year-old patient is here after having have left BKA doing fairly well engage in therapy denies any fever chills sore throat cough nausea vomiting abdominal pain chest pain shortness of breath or any other neurological symptoms otherwise he is happy with the care he is receiving Review of Systems Review of Systems: All systems reviewed & are unremarkable except as noted in HPI and below Functional Status Ambulation Ability Ability to Ambulate 10 Feet: Standby Assistance Ability to Ambulate 50 Feet With 2 Turns: Minimum Assistance X 1 Ambulation Assistive Devices: Walker, Standard Transfers Ability Ability to Transfer In/Out of Chair: Contact Guard Exam Const: General: comfortable and no acute distress HENMT: General nose exam: Normal nares present Mouth: Yes moist mucous membranes Eyes: General: appearance normal, both eyes and all related structures Neck: Neck: no JVD Carotids: bruit Resp: Effort & Inspection: normal respiratory effort Auscultation: clear to auscultation bilaterally Cardio: Rate: regular rate Rhythm: regular rhythm GI: GI Palp: Yes Soft to palpation Auscultation: normal bowel sounds Skin: General skin exam: normal color and no rashes or lesions noted Neuro: Other: patient is awake and alert has normal speech and will function normal cranial examination moderate strength is decreased but that is due to multiple factors not because of a neurological reason he does have evidence of underlying diabetic peripheral neuropathy which remains stable Extrem: Other: left BKA is stable Psych: Mental Status: mental status grossly normal Objective Data Vital Signs Vital Signs: Vital Signs - 24 hr 10/10/19 22:00 10/11/19 06:00 10/11/19 09:32 Temperature 36.2 C L 36.3 C L Pulse Rate 80 71 71 Respiratory Rate 18 18 Blood Pressure 114/63 134/66 Pulse Oximetry 91 99 Intake/Output Intake/Output: Intake & Output 10/08/19 10/09/19 10/10/19 10/11/19 23:59 23:59 23:59 23:59 Intake Total 6509 338 8894 480 Balance 3559 750 0950 480 Meds/Results Medications: Active Medications Generic Name Dose Route Start Last Admin Trade Name Freq PRN Reason Stop Dose Admin Hydrocodone Bitart/Acetaminophen 2 tab 10/03/19 17:55 10/11/19 06:33 [place] 5-325 Mg PO 2 tab Q4H PRN Administration Pain (Scale Score 7-10) Aspirin 81 mg 10/03/19 09:00 10/11/19 09:32 Aspirin Ec PO 81 mg DAILY [facility] Administration Atenolol 50 mg 10/03/19 09:00 10/11/19 09:32 Tenormin PO 50 mg DAILY [facility] Administration Clobetasol Propionate 1 applic 10/02/19 21:00 10/11/19 09:32 Temovate 0.05% Cream TOPICAL 1 applic Q12HR [facility] Administration Dextrose 12.5 gm 10/02/19 19:10 Dextrose 50% Syringe IV PUSH PRN PRN Hypoglycemia Protocol Diphenhydramine HCl 50 mg 10/02/19 21:00 10/10/19 22:05 Benadryl Cap PO 50 mg HS [facility]LI Administration Docusate Sodium 100 mg 10/04/19 21:00 10/11/19 09:31 Colace Capsule PO 100 mg Q12HR [facility] Administration Enoxaparin Sodium 40 mg 10/04/19 09:00 10/11/19 09:32 Lovenox SUB-Q 40 mg DAILY [facility] Administration Fenofibrate 145 mg 10/03/19 09:00 10/11/19 09:32 Tricor PO 145 mg QAM [facility]LI Administration Fish Oil 2 gm 10/03/19 09:00 10/11/19 09:31 Lovaza PO 2 gm BID [facility] Administration Glucagon 1 mg 10/02/19 19:10 Glucagon For Inj IM PRN PRN Hypoglycemia Protocol Glucose 15 gm 10/02/19 19:10 Glutose 15 PO PRN PRN Hypoglycemia Protocol Dextrose 1,000 mls @ 100 mls/hr 10/02/19 19:10 Dextrose 5% 1,000 Ml IVPB PRN PRN Hypoglycemia Protocol Insulin Aspart 4 - 6 units 10/02/19 19:10 10/11/19 12:33 Novolog SUB-Q 4 units TIDWM [facility] Administration Insulin Aspart 4 - 8 units 10/03/19 08:00 10/11/19 12:34 Novolog SUB-Q Not Given TIDWM [facility]
[2019-10-11 16:57] LABS: Glucose Point of Care 144 (65-105)
[2019-10-11 21:18] LABS: Glucose Point of Care 164 (65-105)
[2019-10-11 21:33] VITALS: BP 107/56; PULSE 81; RESP 16; TEMP 36.6; O2SAT 96
[2019-10-12 06:00] VITALS: BP 104/42; PULSE 73; RESP 20; TEMP 36.8; O2SAT 97
[2019-10-12 07:15] LABS: Glucose Point of Care 126 (65-105)
[2019-10-12 08:00] VITALS: PULSE 73; RESP 20; O2SAT 97
[2019-10-12] MEDS: ASPIRIN 81 MG ENTERIC TABLET PO (09:31)
[2019-10-12] MEDS: OMEGA 3 POLYUNSAT FATTY ACIDS 1 GM CAP 2 GM PO ×2 (09:31→17:17)
[2019-10-12] MEDS: TAMSULOSIN HCL 0.4 MG CAPSULE PO (09:31)
[2019-10-12 09:32] VITALS: PULSE 73
[2019-10-12] MEDS: FENOFIBRATE NANOCRYSTALLIZED 145 MG TABLET PO (09:32)
[2019-10-12] MEDS: ENOXAPARIN 40 MG/0.4 ML SYRINGE SUB-Q (09:32)
[2019-10-12] MEDS: atenoloL 50 MG TABLET PO (09:32)
[2019-10-12] MEDS: metFORMIN HCL 500 MG TABLET 1000 MG PO ×2 (09:33→17:17)
[2019-10-12] MEDS: polyethylene glycoL 3350 17 GM POWD.PACK PO (09:33)
[2019-10-12] MEDS: TELMISARTAN 40 MG TABLET 80 MG PO (09:33)
[2019-10-12] MEDS: DOCUSATE SODIUM 100 MG CAPSULE PO ×2 (09:33→20:13)
[2019-10-12] MEDS: PREGABALIN 75 MG CAPSULE 150 MG PO ×2 (09:37→17:22)
[2019-10-12] MEDS: INSULIN DETEMIR 100 UNITS/ML 70 UNITS SUB-Q (09:38)
--- NOTE | 2019-10-12 11:17 | WPDNEURORHBP ---
Subjective Date/time seen: October 12, 2019 11:17 Interval history: this 68-year-old gentleman is here after having had the left BKA doing fairly well no fever no chills no sore throat no headache no chest pain no shortness of breath no nausea vomiting diarrhea he is happy with the care he is receiving Review of Systems Review of Systems: All systems reviewed & are unremarkable except as noted in HPI and below Functional Status Ambulation Ability Ability to Ambulate 10 Feet: Standby Assistance Ability to Ambulate 50 Feet With 2 Turns: Minimum Assistance X 1 Ambulation Assistive Devices: Walker, Standard Transfers Ability Ability to Transfer In/Out of Chair: Contact Guard Exam Const: General: comfortable and no acute distress HENMT: General nose exam: Normal nares present Mouth: Yes moist mucous membranes Eyes: General: appearance normal, both eyes and all related structures Neck: Neck: supple and no JVD Resp: Effort & Inspection: normal respiratory effort Auscultation: clear to auscultation bilaterally Cardio: Rate: regular rate Rhythm: regular rhythm GI: GI Palp: Yes Soft to palpation Auscultation: normal bowel sounds Skin: General skin exam: normal color and no rashes or lesions noted Neuro: Other: patient is awake and alert well oriented in time place and person is speech language functions are normal cranial exam ibanez normal overall strength has improved and the left BKA remains clean and healthy Extrem: Other: left BKA is clean and healthy Psych: Mental Status: mental status grossly normal Objective Data Vital Signs Vital Signs: Vital Signs - 24 hr 10/12/19 14:00 10/12/19 22:00 10/13/19 06:00 Temperature 36.5 C 37.0 C 36.6 C Pulse Rate 70 79 81 Respiratory Rate 18 18 18 Blood Pressure 118/52 L 105/51 L 113/39 L Pulse Oximetry 97 97 95 10/13/19 09:10 10/13/19 09:15 Temperature Pulse Rate 91 91 Respiratory Rate Blood Pressure 106/70 Pulse Oximetry Intake/Output Intake/Output: Intake & Output 10/10/19 10/11/19 10/12/19 10/13/19 23:59 23:59 23:59 23:59 Intake Total 1320 1440 720 480 Balance 1320 1440 720 480 Meds/Results Medications: Active Medications Generic Name Dose Route Start Last Admin Trade Name Freq PRN Reason Stop Dose Admin Hydrocodone Bitart/Acetaminophen 2 tab 10/03/19 17:55 10/13/19 09:14 [place] 5-325 Mg PO 2 tab Q4H PRN Administration Pain (Scale Score 7-10) Aspirin 81 mg 10/03/19 09:00 10/13/19 09:08 Aspirin Ec PO 81 mg DAILY [facility] Administration Atenolol 50 mg 10/03/19 09:00 10/13/19 09:10 Tenormin PO 50 mg DAILY [facility] Administration Clobetasol Propionate 1 applic 10/02/19 21:00 10/13/19 09:16 Temovate 0.05% Cream TOPICAL 1 applic Q12HR [facility] Administration Dextrose 12.5 gm 10/02/19 19:10 Dextrose 50% Syringe IV PUSH PRN PRN Hypoglycemia Protocol Diphenhydramine HCl 50 mg 10/02/19 21:00 10/12/19 20:13 Benadryl Cap PO 50 mg HS [facility] Administration Docusate Sodium 100 mg 10/04/19 21:00 10/13/19 09:09 Colace Capsule PO 100 mg Q12HR [facility] Administration Enoxaparin Sodium 40 mg 10/04/19 09:00 10/13/19 09:09 Lovenox SUB-Q 40 mg DAILY [facility] Administration Fenofibrate 145 mg 10/03/19 09:00 10/13/19 09:09 Tricor PO 145 mg QAM [facility] Administration Fish Oil 2 gm 10/03/19 09:00 10/13/19 09:09 Lovaza PO 2 gm BID [facility] Administration Glucagon 1 mg 10/02/19 19:10 Glucagon For Inj IM PRN PRN Hypoglycemia Protocol Glucose 15 gm 10/02/19 19:10 Glutose 15 PO PRN PRN Hypoglycemia Protocol Dextrose 1,000 mls @ 100 mls/hr 10/02/19 19:10 Dextrose 5% 1,000 Ml IVPB PRN PRN Hypoglycemia Protocol Insulin Aspart 4 - 6 units 10/02/19 19:10 10/13/19 09:21 Novolog SUB-Q 6 units TIDWM [facility] Administration Insulin Aspart 4 - 8 units 10/03/19 08:00 10/13/19 09:15 Novolog S
[2019-10-12 11:45] LABS: Glucose Point of Care 129 (65-105)
[2019-10-12 14:00] VITALS: BP 118/52; PULSE 70; RESP 18; TEMP 36.5; O2SAT 97
[2019-10-12 17:05] LABS: Glucose Point of Care 105 (65-105)
--- NOTE | 2019-10-12 18:20 | PC.NURSE ---
Patient's scheduled insulin at mealtime on 10-12-19 was not given bc. of patient refusal. unable to change it to patient refusal in the MAR. the MAR states no dose required but should be patient refusal.
[2019-10-12 21:14] LABS: Glucose Point of Care 203 (65-105)
[2019-10-12 22:00] VITALS: BP 105/51; PULSE 79; RESP 18; TEMP 37; O2SAT 97
[2019-10-13 06:00] VITALS: BP 113/39; PULSE 81; RESP 18; TEMP 36.6; O2SAT 95
[2019-10-13 07:14] LABS: Glucose Point of Care 139 (65-105)
[2019-10-13] MEDS: ASPIRIN 81 MG ENTERIC TABLET PO (09:08)
[2019-10-13] MEDS: metFORMIN HCL 500 MG TABLET 1000 MG PO ×2 (09:09→17:56)
[2019-10-13] MEDS: OMEGA 3 POLYUNSAT FATTY ACIDS 1 GM CAP 2 GM PO ×2 (09:09→17:57)
[2019-10-13] MEDS: polyethylene glycoL 3350 17 GM POWD.PACK PO (09:09)
[2019-10-13] MEDS: FENOFIBRATE NANOCRYSTALLIZED 145 MG TABLET PO (09:09)
[2019-10-13] MEDS: ENOXAPARIN 40 MG/0.4 ML SYRINGE SUB-Q (09:09)
[2019-10-13] MEDS: DOCUSATE SODIUM 100 MG CAPSULE PO ×2 (09:09→20:20)
[2019-10-13 09:10] VITALS: PULSE 91
[2019-10-13] MEDS: TELMISARTAN 40 MG TABLET 80 MG PO (09:10)
[2019-10-13] MEDS: TAMSULOSIN HCL 0.4 MG CAPSULE PO (09:10)
[2019-10-13] MEDS: atenoloL 50 MG TABLET PO (09:10)
[2019-10-13 09:15] VITALS: BP 106/70; PULSE 91
[2019-10-13] MEDS: INSULIN DETEMIR 100 UNITS/ML 70 UNITS SUB-Q (09:17)
[2019-10-13] MEDS: INSULIN ASPART (*BKC) 100 UNITS/ML SUB-Q (09:21)
[2019-10-13] MEDS: PREGABALIN 75 MG CAPSULE 150 MG PO ×2 (10:47→17:59)
[2019-10-13 12:30] LABS: Glucose Point of Care 67 (65-105)
--- NOTE | 2019-10-13 12:56 | WPDNEURORHBP ---
Subjective Date/time seen: 10/13/19 12:56 Interval history: this 68-year-old here is on the rehab floor after left [id number] amputation secondary to peripheral artery disease he is a diabetic and is on insulin and also has multiple is medical issues including peripheral neuropathy Patient denies any new complaints and ready to be discharged tomorrow no headache no chest pain no shortness of breath nausea vomiting diarrhea abdominal pain trouble urination or constipation Review of Systems Review of Systems: All systems reviewed & are unremarkable except as noted in HPI and below Functional Status Ambulation Ability Ability to Ambulate 10 Feet: Standby Assistance Ability to Ambulate 50 Feet With 2 Turns: Minimum Assistance X 1 Ambulation Assistive Devices: Walker, Standard Transfers Ability Ability to Transfer In/Out of Chair: Contact Guard Exam Const: General: comfortable and no acute distress HENMT: General nose exam: Normal nares present Mouth: Yes moist mucous membranes Eyes: General: appearance normal, both eyes and all related structures Neck: Neck: supple and no JVD Resp: Effort & Inspection: normal respiratory effort Auscultation: clear to auscultation bilaterally Cardio: Rate: regular rate Rhythm: regular rhythm GI: GI Palp: Yes Soft to palpation Auscultation: normal bowel sounds Skin: General skin exam: normal color and no rashes or lesions noted Neuro: Other: patient is awake and alert will oriented time place person has a normal mental status examination normal speech and language functions normal cranial examination of course he does have weakness and handicap due to left howcj-fee-fual amputation along with signs of peripheral vascular disease and also peripheral neuropathy Extrem: Other: the site of left BKA is clean and healthy and no sign of infection is noted Psych: Mental Status: mental status grossly normal Objective Data Vital Signs Vital Signs: Vital Signs - 24 hr 10/12/19 14:00 10/12/19 22:00 10/13/19 06:00 Temperature 36.5 C 37.0 C 36.6 C Pulse Rate 70 79 81 Respiratory Rate 18 18 18 Blood Pressure 118/52 L 105/51 L 113/39 L Pulse Oximetry 97 97 95 10/13/19 09:10 10/13/19 09:15 Temperature Pulse Rate 91 91 Respiratory Rate Blood Pressure 106/70 Pulse Oximetry Intake/Output Intake/Output: Intake & Output 10/10/19 10/11/19 10/12/19 10/13/19 23:59 23:59 23:59 23:59 Intake Total 1320 1440 720 480 Balance 1320 1440 720 480 Meds/Results Medications: Active Medications Generic Name Dose Route Start Last Admin Trade Name Freq PRN Reason Stop Dose Admin Hydrocodone Bitart/Acetaminophen 2 tab 10/03/19 17:55 10/13/19 09:14 [place] 5-325 Mg PO 2 tab Q4H PRN Administration Pain (Scale Score 7-10) Aspirin 81 mg 10/03/19 09:00 10/13/19 09:08 Aspirin Ec PO 81 mg DAILY [facility] Administration Atenolol 50 mg 10/03/19 09:00 10/13/19 09:10 Tenormin PO 50 mg DAILY [facility] Administration Clobetasol Propionate 1 applic 10/02/19 21:00 10/13/19 09:16 Temovate 0.05% Cream TOPICAL 1 applic Q12HR [facility] Administration Dextrose 12.5 gm 10/02/19 19:10 Dextrose 50% Syringe IV PUSH PRN PRN Hypoglycemia Protocol Diphenhydramine HCl 50 mg 10/02/19 21:00 10/12/19 20:13 Benadryl Cap PO 50 mg HS [facility] Administration Docusate Sodium 100 mg 10/04/19 21:00 10/13/19 09:09 Colace Capsule PO 100 mg Q12HR [facility] Administration Enoxaparin Sodium 40 mg 10/04/19 09:00 10/13/19 09:09 Lovenox SUB-Q 40 mg DAILY [facility] Administration Fenofibrate 145 mg 10/03/19 09:00 10/13/19 09:09 Tricor PO 145 mg QAM [facility] Administration Fish Oil 2 gm 10/03/19 09:00 10/13/19 09:09 Lovaza PO 2 gm BID [facility] Administration Glucagon 1 mg 10/02/19 19:10 Glucagon For Inj IM PRN PRN Hypoglycemia Protocol Glucose 15 gm 10/02/19 19:10 Glutose 15 PO PRN PRN Hypoglyce
[2019-10-13 13:05] LABS: Glucose Point of Care 137 (65-105)
[2019-10-13 14:00] VITALS: BP 127/54; PULSE 78; RESP 18; TEMP 36.3; O2SAT 100
[2019-10-13 17:37] LABS: Glucose Point of Care 94 (65-105)
[2019-10-13 21:35] VITALS: BP 122/53; PULSE 77; RESP 16; TEMP 36.6; O2SAT 97
[2019-10-13 22:16] LABS: Glucose Point of Care 211 (65-105)
[2019-10-14 06:00] VITALS: BP 111/41; PULSE 70; RESP 20; TEMP 36.2; O2SAT 93
[2019-10-14 06:15] LABS: Glucose Point of Care 142 (65-105)
[2019-10-14 08:45] VITALS: PULSE 70
[2019-10-14] MEDS: DOCUSATE SODIUM 100 MG CAPSULE PO (08:45)
[2019-10-14] MEDS: ASPIRIN 81 MG ENTERIC TABLET PO (08:45)
[2019-10-14] MEDS: TAMSULOSIN HCL 0.4 MG CAPSULE PO (08:45)
[2019-10-14] MEDS: atenoloL 50 MG TABLET PO (08:45)
[2019-10-14] MEDS: OMEGA 3 POLYUNSAT FATTY ACIDS 1 GM CAP 2 GM PO (08:45)
[2019-10-14] MEDS: polyethylene glycoL 3350 17 GM POWD.PACK PO (08:46)
[2019-10-14] MEDS: ENOXAPARIN 40 MG/0.4 ML SYRINGE SUB-Q (08:46)
[2019-10-14] MEDS: FENOFIBRATE NANOCRYSTALLIZED 145 MG TABLET PO (08:46)
[2019-10-14] MEDS: INSULIN DETEMIR 100 UNITS/ML 70 UNITS SUB-Q (08:46)
[2019-10-14] MEDS: metFORMIN HCL 500 MG TABLET 1000 MG PO (08:47)
[2019-10-14] MEDS: TELMISARTAN 40 MG TABLET 80 MG PO (08:49)
[2019-10-14] MEDS: INSULIN ASPART (*BKC) 100 UNITS/ML SUB-Q (08:50)
[2019-10-14] MEDS: PREGABALIN 75 MG CAPSULE 150 MG PO (08:50)
--- NOTE | 2019-10-17 12:17 | DS_ITS ---
DATE OF DISCHARGE: 10/14/2019 DISCHARGE ACUTE REHAB DIAGNOSIS: Primary rehab impairment category #10/amputation of lower extremity with etiological diagnosis of peripheral arterial disease with left foot ischemic ulcer ultimately followed by left below-knee amputation. DISCHARGE ACTIVE COMORBID CONDITIONS: 1. Eczema. 2. Right toe nonhealing wound. 3. Hyperlipidemia. 4. Hypertension. 5. Peripheral vascular disease. 6. Sleep apnea. 7. Gastroesophageal reflux disease. 8. Peripheral neuropathy. 9. Diabetes mellitus. 10. Obesity. REASON FOR ADMISSION: A 68-year-old right-handed male with a previous history of: 1. Diabetes. 2. Peripheral vascular disease. 3. Peripheral neuropathy. Developed an ischemic ulcer and infection to his left foot. He had left popliteal distal bypass graft, which was done several years ago. He saw his informaticist, Dr. Herrera on September 15, 2019, where his right foot was debrided. The antibiotic was ordered, but he was not on any antibiotic therapy. His left lower extremity started swelling and was extremely painful, so he presented to Dr. Gandhi's office. Directly admitted to [facility] same day underwent diagnostic aortofemoral angiogram to see if any vascular reconstruction was possible. Vascular surgeon determined the patient had non-reconstruction because of the vascular disease, which was worse on the left side. Limb was consider salvageable and the patient underwent left [id number] amputation on 09/27/2019. Postoperatively, patient experienced acute pain, acute blood loss anemia, hypertension. Pain medication were controlled with oral pain medication. Anemia was stabilized. Hemoglobin was 11.9. Hypertension was being managed with multiple medication. He was definitely improving. Examination revealed him to have inability to perform ADLs, functional transfer, ambulation. In addition, he required the management for the hypertension, diabetes mellitus, and there was potential for delayed wound healing in the setting of severe peripheral vascular disease, potential for wound dehiscence and possibility of the infection in a person with a new [id number] amputation and infectious process of the same extremity. He completed the antibiotic therapy on 09/28/2019. Initially, the therapy was initiated at the acute care facility. He was transferred from [facility] on 10/02/2019. LEVEL OF FUNCTION AT THE TIME OF ADMISSION: The patient was independent in eating, required setup for oral hygiene, supervision for toileting, partial assistance for bathing, setup for upper body dressing, substantial assistance for lower body dressing. He was foot dependent for the footwear. He was independent rolling in bed, sit to lying, lying to sitting. He required partial assistance for sit to stand, chair transfer, toilet transfer, car transfer, walking 10 feet, walking 50 feet with 2 turns and he was unable to walk 150 feet. Walk 10 feet on uneven surfaces, curb or step, 4 steps, 12 step. He was unable to pickup objects and he required the setup for the wheelchair for 50 feet as well. ANTICIPATED REHAB GOALS AT THE TIME OF ADMISSION: Were to make him independent in eating, oral hygiene, toileting, bathing, upper body dressing, lower body dressing, footwear, rolling in bed, sit to lying, lying to sitting, sit to stand, chair transfer, toilet transfer, require only setup for the car transfer, walking 10 feet, 50 feet with 2 turns, setup for the 10 feet on uneven surfaces and picking up objects, partial assistance for curb or step, 4 steps. The patient will be unable to take 4 steps or 12 step. Level of function at the time of admission, patient became independent in most of the modalities except that he required supervision for car transfer, w
== END 2019-10-14 11:00 | disposition home health service (06) | DRG 561 ==
PROVIDERS: Psychiatry & Neurology Neurology; Admitting Provider Psychiatry & Neurology Neurology; Visit Provider Psychiatry & Neurology Neurology
DX: Z47.81 Encounter for orthopedic aftercare following surgical amputation (principal); Z89.512 Acquired absence of left leg below knee; E11.51 Type 2 diabetes mellitus with diabetic peripheral angiopathy without gangrene; E11.42 Type 2 diabetes mellitus with diabetic polyneuropathy; E66.9 Obesity, unspecified; E78.5 Hyperlipidemia, unspecified; G47.30 Sleep apnea, unspecified; I10 Essential (primary) hypertension; K21.9 Gastro-esophageal reflux disease without esophagitis; N40.0 Benign prostatic hyperplasia without lower urinary tract symptoms; Z79.4 Long term (current) use of insulin; Z87.891 Personal history of nicotine dependence; Z89.421 Acquired absence of other right toe(s); Z68.33 Body mass index [BMI] 33.0-33.9, adult; L30.9 Dermatitis, unspecified; Z79.82 Long term (current) use of aspirin
CPT/HCPCS: 36415; 80048; 83036; 85025; 87081; 97110; 97116; 97150; 97162; 97165; 97530; 97535; 97542; A9270; J1650; J1815